=== PATIENT | male | born 1985 | race Hispanic/Latino ===

== ENCOUNTER 2019-08-08 13:23 | Emergency (ER) | payer SELFPAY ==
[2019-08-08] MEDS ORDERED: DIPHENHYDRAMINE HCL 25 MG CAPSULE ONE (14:37)
[2019-08-08] MEDS ORDERED: NAPROXEN 500 MG TABLET ONE (14:37)
== END 2019-08-08 15:04 | disposition home or self-care (01) ==
LOC: EDH 13:23
DX: J09.X2 Influenza due to identified novel influenza A virus with other respiratory manifestations (principal)
CPT/HCPCS: 87804 ×2; 99283; Q0163

== ENCOUNTER 2022-04-17 19:30 | Emergency (ER) | payer OTHER ==
[~2022-04-17] VITALS: Ht 172.7 cm; Wt 101.6 kg
== END 2022-04-17 22:00 | disposition left against medical advice (07) ==
LOC: EDH 19:30
DX: M54.50 Low back pain, unspecified (principal); Z53.21 Procedure and treatment not carried out due to patient leaving prior to being seen by health care provider